=== PATIENT | female | born 1950 | race Caucasian/White ===

== ENCOUNTER → 2023-10-15 11:26 | Outpatient (REF) | payer OTHER, SELFPAY ==
[2023-10-15 12:11] LABS: % Basophils 0.8 % (0-2); % Eosinophils 1.8 % (0-6); % Immature Granulocytes 0.2 % (0-0.5); % Lymphocytes 29.6 % (20.5-51.1); % Monocytes 12.7 % (1.7-9.3); % Neutrophils 54.9 % (42.2-75.2); Absolute Eosinophils 0.1 10^3/uL (0-0.7); Absolute Lymphocytes 1.5 10^3/uL (1.2-3.4); Absolute Monocytes 0.7 10^3/uL (0.1-0.6); Absolute Neutrophils 2.8 10^3/uL (1.4-6.5); Hematocrit 39.1 % (37.0-47.0); Hemoglobin 12.9 g/dL (12.0-16.0); Mean Corpuscular Hgb 30.4 pg (27.0-31.0); Mean Corpuscular Volume 92.2 fL (81.0-99.0); Mean Platelet Volume 10.6 fL (7.4-10.4); Nucleated Red Blood Cells % 0 %; Platelet Count 259 10^3/uL (130-400); Red Blood Cell Count 4.24 10^6/uL (4.20-5.40); Red Cell Dist. Width 12.6 % (11.5-14.5); White Blood Cell Count 5.1 10^3/uL (4.8-10.8)
[2023-10-15 12:25] LABS: INR 2.21; PT 24.7 Sec (11.4-14.6)
== END ==
LOC: REG 11:26
PROVIDERS: ATTENDING PHYSICIAN Internal Medicine Hematology & Oncology; FAMILY PHYSICIAN Internal Medicine
DX: Z86.718 Personal history of other venous thrombosis and embolism (principal); Z86.73 Personal history of transient ischemic attack (TIA), and cerebral infarction without residual deficits; D75.9 Disease of blood and blood-forming organs, unspecified; D69.9 Hemorrhagic condition, unspecified; M35.01 Sjogren syndrome with keratoconjunctivitis; R23.3 Spontaneous ecchymoses; D68.61 Antiphospholipid syndrome
CPT/HCPCS: 36415; 85025; 85610

== ENCOUNTER → 2023-10-27 15:22 | Outpatient (REF) | payer OTHER, SELFPAY ==
[2023-10-27 16:36] LABS: % Basophils 1.1 % (0-2); % Eosinophils 1.7 % (0-6); % Immature Granulocytes 0.4 % (0-0.5); % Lymphocytes 32.3 % (20.5-51.1); % Monocytes 10.8 % (1.7-9.3); % Neutrophils 53.7 % (42.2-75.2); Absolute Basophils 0.1 10^3/uL (0-0.2); Absolute Eosinophils 0.1 10^3/uL (0-0.7); Absolute Lymphocytes 1.8 10^3/uL (1.2-3.4); Absolute Monocytes 0.6 10^3/uL (0.1-0.6); Absolute Neutrophils 2.9 10^3/uL (1.4-6.5); Hematocrit 36.9 % (37.0-47.0); Hemoglobin 12.3 g/dL (12.0-16.0); Mean Corp Hgb Conc. 33.3 g/dL (33.0-37.0); Mean Platelet Volume 10.9 fL (7.4-10.4); Nucleated Red Blood Cells % 0 %; Platelet Count 292 10^3/uL (130-400); Red Cell Dist. Width 12.7 % (11.5-14.5); White Blood Cell Count 5.5 10^3/uL (4.8-10.8)
[2023-10-27 16:44] LABS: INR 3.05; PT 31.5 Sec (11.4-14.6)
== END ==
LOC: REG 15:22
PROVIDERS: ATTENDING PHYSICIAN Internal Medicine Hematology & Oncology; FAMILY PHYSICIAN Internal Medicine
DX: Z86.718 Personal history of other venous thrombosis and embolism (principal); Z86.73 Personal history of transient ischemic attack (TIA), and cerebral infarction without residual deficits; D75.9 Disease of blood and blood-forming organs, unspecified; D69.9 Hemorrhagic condition, unspecified; M35.01 Sjogren syndrome with keratoconjunctivitis; R23.3 Spontaneous ecchymoses; D68.61 Antiphospholipid syndrome
CPT/HCPCS: 36415; 85025; 85610

== ENCOUNTER → 2023-11-06 15:46 | Outpatient (REF) | payer OTHER, SELFPAY | LOC: REG 15:46 | PROVIDERS: ATTENDING PHYSICIAN Internal Medicine Hematology & Oncology; FAMILY PHYSICIAN Internal Medicine | DX: Z86.718 Personal history of other venous thrombosis and embolism (principal); Z86.73 Personal history of transient ischemic attack (TIA), and cerebral infarction without residual deficits; D75.9 Disease of blood and blood-forming organs, unspecified; D69.9 Hemorrhagic condition, unspecified; M35.01 Sjogren syndrome with keratoconjunctivitis; R23.3 Spontaneous ecchymoses; D68.61 Antiphospholipid syndrome | CPT/HCPCS: 36415; 85610 ==

== ENCOUNTER → 2023-12-11 10:29 | Outpatient (REF) | payer OTHER, SELFPAY ==
[2023-12-11 11:06] LABS: INR 1.99; PT 22.5 Sec (11.4-14.6)
== END ==
LOC: REG 10:29
PROVIDERS: ATTENDING PHYSICIAN Internal Medicine Hematology & Oncology; FAMILY PHYSICIAN Internal Medicine
DX: Z86.718 Personal history of other venous thrombosis and embolism (principal); Z86.73 Personal history of transient ischemic attack (TIA), and cerebral infarction without residual deficits; D75.9 Disease of blood and blood-forming organs, unspecified; D69.9 Hemorrhagic condition, unspecified
CPT/HCPCS: 36415; 85610

== ENCOUNTER → 2023-12-17 09:35 | Outpatient (REF) | payer OTHER, SELFPAY ==
[2023-12-17 12:13] LABS: INR 2.56; PT 27.8 Sec (11.4-14.6)
== END ==
LOC: REG 09:35
PROVIDERS: ATTENDING PHYSICIAN Internal Medicine Hematology & Oncology; FAMILY PHYSICIAN Internal Medicine
DX: Z86.718 Personal history of other venous thrombosis and embolism (principal); Z86.73 Personal history of transient ischemic attack (TIA), and cerebral infarction without residual deficits; D75.9 Disease of blood and blood-forming organs, unspecified; D69.9 Hemorrhagic condition, unspecified; M35.01 Sjogren syndrome with keratoconjunctivitis; R23.3 Spontaneous ecchymoses; D68.61 Antiphospholipid syndrome
CPT/HCPCS: 36415; 85610

== ENCOUNTER → 2024-01-13 15:20 | Outpatient (REF) | payer OTHER, SELFPAY ==
[2024-01-13 17:12] LABS: INR 2.42; PT 26.6 Sec (11.4-14.6)
== END ==
LOC: REG 15:20
PROVIDERS: ATTENDING PHYSICIAN Internal Medicine Hematology & Oncology; FAMILY PHYSICIAN Internal Medicine
DX: Z86.718 Personal history of other venous thrombosis and embolism (principal); Z86.73 Personal history of transient ischemic attack (TIA), and cerebral infarction without residual deficits; D75.9 Disease of blood and blood-forming organs, unspecified; D69.9 Hemorrhagic condition, unspecified; M35.01 Sjogren syndrome with keratoconjunctivitis; R23.3 Spontaneous ecchymoses; D68.61 Antiphospholipid syndrome
CPT/HCPCS: 36415; 85610

== ENCOUNTER 2024-01-28 10:03 | Emergency (ER) | payer OTHER, SELFPAY ==
[2024-01-28 10:13] VITALS: BP 148/83
--- NOTE | 2024-01-28 12:11 | ED.GENMED ---
History of Present Illness
General
Chief Complaint: Musculo-Skeletal Complaint
Source: patient
Exam Limitations: none
Time Seen by Provider: 01/28/24 11:30
Nursing documentation reviewed up to this point in time: agreed with
Travel History
Have you had any contact with someone who has COVID-19?: No
Do you have any symptoms of coronavirus? Fever > 100 degrees, chills, cough, shortness of breath, sore throat, loss of taste or smell, muscle aches, or headache?: No
History of Present Illness
History of Present Illness:
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 She reports earlier today around 7 AM she was outside gardening lifting heavy hoses but did not necessarily
have an injury. She reports prior to arrival she was sitting having coffee and she felt pain in her left upper trapezius, shoulder area which radiated down her left arm and into her left fifth finger. Her was helping her get dressed when
she felt a lot of pain in her upper arm and noticed a lump to her left upper inner arm. She denies any injury. She does report however in the past she has had episodes where she has had bruising without injury. She had no associated chest pain or
shortness of breath. She has pain with left arm abduction. No cardiac history.
Patient does report that she has had multiple episodes in the past of ecchymosis to extremities being on Coumadin and had no exact injury.
Past History
Past History
ED Past Medical History: CVA, HTN, Hypothyroidism and Other (lupus/Sjogren's, DVT, Pyelo, pericardial effusion)
ED Past Surgical History: Orthopedic and Other (Pericardiocentesis)
Social History
Tobacco: Former smoker
Alcohol: None
Drug: None
Personal:
Living: with family
Review of Systems
Review of Systems
Allergies reviewed?: Yes
All Other Systems: ROS reviewed and negative except as documented in HPI and ROS
Constitutional: Reports no symptoms; Denies fever
Respiratory: Reports no symptoms; Denies trouble breathing
Cardiac: Reports no symptoms; Denies chest pain
Musculoskeletal: Reports other (left arm pain )
Skin: Reports no symptoms
Neurological: Reports no symptoms
Psychiatric: Reports no symptoms
Phy Exam
General Physical Exam
General Presentation: no apparent distress
General age: appears stated age
General Skin: warm and dry
General Hydration: appears well hydrated
Cardiovascular Exam
Cardiovascular Exam: regular rate/rhythm, no murmur and normal peripheral pulses
Pulmonary Exam
Pulmonary Exam: lungs clear and no respiratory distress
[place] Coma Scale
Eye Opening: Spontaneous
Verbal Response: Oriented
Motor Response: Obeys Commands
GCS Total Score: 15
Musculoskeletal Exam
Musculoskeletal Exam: full ROM
Skin Exam
Skin Exam: normal color and warm/dry
Psychiatric Exam
Psychiatric Exam: normal mood/affect
Course
Orders/Labs/Results
Orders:
Orders
01/28/24 10:06
EKG [Electrocardiogram (*1)] Urgent
Reason for Study: Chest Pain
01/28/24 10:07
EKG- Treatment ONCE
01/28/24 12:12
Non Vasc Upper Ext Left US [US Non Vasc UPPER Ext LT] Urgent
Comment:
Reason For Exam: lump to upper inner arm
01/28/24 12:56
Complete Blood Count/With Diff Urgent
Comprehensive Metabolic Panel Urgent
Prothrombin Time Urgent
01/28/24 14:35
Sling Left-Treatment ONCE
Acetaminophen [Tylenol] 650 mg PO NOW STA
Abnormal Lab Results
01/28/24
12:56
RBC 4.07 L 10^6/uL
(4.20-5.40)
Hct 36.2 L %
(37.0-47.0)
MPV 10.5 H fL
(7.4-10.4)
Absolute Monos (auto) 0.7 H 10^3/uL
(0.1-0.6)
Monocytes % 11.8 H %
(1.7-9.3)
PT 26.8 H Sec
(11.4-14.6)
BUN 18 H mg/dl
(7-17)
01/28/24 12:56
01/28/24 12:56
Vital Signs
Initial and Last Documented VS:
Initial Vital Signs
Temp Pulse Resp BP Pulse Ox
98.7 F 76 16 148/83 98
01/28/24 10:13 01/28/24 10:13 01/28/24 10:13 01/28/24 10:13 01/28/24 10:13
Last Documented Vital Signs
Temp Pulse Resp BP Pulse Ox
98.7 F 76 16 148/83 99
01/28/24 10:13 01/28/24 10:13 01/28/24 10:13 01/28/24 10:13 01/28/24 11:09
Physics Tutor consulted with Physician
Physics Tutor consulted with physician?: Yes
Name of Physician Consulted: No
MDM/Problems Addressed
Differential Diagnosis Includes:
not limited
MDM/Problems Addressed:
Patient is a 73-year-old female who presented to the ER with left shoulder/upper arm pain that radiates down her left arm and into her fifth finger while sitting having breakfast. She had no injury but noticed a palpable lump to the upper inner arm
which was very tender. She denies any injury. She is on Coumadin and does a lot of work around the house. Today she was moving hoses and noticed pain after. On exam she arrives in no acute distress she had no associated chest pain shortness of
breath normal EKG no cardiac history. 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 Pt has no bony tenderness. will hold
of of xray.
Patient is afebrile stable hemoglobin at 12.1 INR is 2.44 normal chemistries , ultrasound does show a complex collection at the level of interest 4.2 cm likely a hematoma. Patient no acute distress had discomfort with ambulation symptoms are
consistent with muscle/hematoma. Will DC with sling for support ice Tylenol and outpatient Ortho follow-up
*Radiology
Radiology exam reviewed: radiology read reviewed
*Pulse Oximetry
Patient hypoxic: no
*EKG
Interpreted by ED Provider?: Yes
Heart Rate: 70
Rate: normal
Rhythm: sinus
Ischemia: no ischemia
*Critical Care Note
Total Time (30-74mins, 75-104mins- exclusive of procedures): Not Applicable
ED Attending Note
-
Portions of this chart may have been created with voice recognition software.� Occasional wrong word or��sound alike� substitutions may have occurred due to the inherent limitations of voice recognition software.
Discharge Plan
Departure
Patient Disposition: Home (Routine Discharge)
Date of Disposition: 01/28/24
Time of Disposition: 14:39
Patient with high blood pressure during this ER visit?: Yes
Covid-19: Not Applicable
Discharge Problem:
Hematoma
Instructions: Hematoma
Prescriptions:
No Action
hydroxychloroquine 200 MG tablet
300 mg PO DAILY
zinc acetate 50 mg (zinc) Capsule
50 mg PO DAILY
warfarin 5 mg tablet
10 mg PO MOFR
warfarin 5 mg tablet
7.5 mg PO SUTUWETHSA
TheraTears 0.25 % Dropperette
1 drp BOTH EYES DAILY
cholecalciferol (vitamin D3) [Vitamin D3] 25 mcg (1,000 unit) Tablet
25 mcg PO DAILY
TheraTears Nutrition [phone] nk-oc-dh-unit Capsule
1 cap PO DAILY
doxycycline hyclate 100 mg Capsule
100 mg PO BID Qty: 12 0RF
cefdinir 300 mg capsule
300 mg PO Q12H Qty: 12 0RF
Referrals:
Yas Martinez MD [Family Provider] -
Familia Louis MD [Active] -
Activity Restrictions/Additional Instructions:
As discussed wear sling for support but remove several times a day and do gentle range of motion exercises. Ice the affected area for the next 24 hours times of time several times a day. Tylenol for discomfort. Follow-up with orthopedics for
further reevaluation return if any worsening of symptoms
Interventions
Interventions:
*Risk Screen - Suicide Last Done: 01/28/24 11:09
*General Assessment Last Done: 01/28/24 11:09
*Neglect/Abuse Screening Last Done: 01/28/24 11:09
ED- Fall Risk Assessment Last Done: 01/28/24 11:09
*ED COVID-19 Vaccine History Last Done: 01/28/24 10:13
ED-Musculoskeletal Assessment Last Done: 01/28/24 11:09
Discharge Date and Time
Print Language: YI
[2024-01-28 13:29] LABS: % Basophils 0.5 % (0-2); % Eosinophils 2.2 % (0-6); % Immature Granulocytes 0.2 % (0-0.5); % Lymphocytes 24.1 % (20.5-51.1); % Monocytes 11.8 % (1.7-9.3); % Neutrophils 61.2 % (42.2-75.2); Absolute Eosinophils 0.1 10^3/uL (0-0.7); Absolute Lymphocytes 1.5 10^3/uL (1.2-3.4); Absolute Monocytes 0.7 10^3/uL (0.1-0.6); Absolute Neutrophils 3.8 10^3/uL (1.4-6.5); Hematocrit 36.2 % (37.0-47.0); Hemoglobin 12.1 g/dL (12.0-16.0); Mean Corp Hgb Conc. 33.4 g/dL (33.0-37.0); Mean Corpuscular Hgb 29.7 pg (27.0-31.0); Mean Corpuscular Volume 88.9 fL (81.0-99.0); Mean Platelet Volume 10.5 fL (7.4-10.4); Nucleated Red Blood Cells % 0 %; Platelet Count 242 10^3/uL (130-400); Red Blood Cell Count 4.07 10^6/uL (4.20-5.40); Red Cell Dist. Width 13.2 % (11.5-14.5); White Blood Cell Count 6.3 10^3/uL (4.8-10.8)
[2024-01-28 13:39] LABS: INR 2.44; PT 26.8 Sec (11.4-14.6)
[2024-01-28 13:43] LABS: ALT (SGPT) 17 U/L (0-35); AST (SGOT) 26 U/L (14-36); Albumin 4.4 g/dl (3.5-5.0); Alkaline Phosphatase 76 U/L (38-126); Blood Urea Nitrogen 18 mg/dl (7-17); Calcium 9.9 mg/dl (8.4-10.2); Carbon Dioxide 28 mmol/L (22-30); Chloride 105 mmol/L (98-107); Glucose 87 mg/dl (70-99); Potassium 4.7 mmol/L (3.5-5.1); Sodium 142 mmol/L (135-145); Total Bilirubin 0.7 mg/dl (0.2-1.3); Total Protein 7.6 g/dl (6.3-8.2); eGFR 59.86
[2024-01-28] MEDS: TYLENOL 650 MG PO (14:39)
[2024-01-28 14:46] VITALS: BP 142/87
== END 2024-01-28 15:16 | disposition home or self-care (01) ==
LOC: EMR 10:03
PROVIDERS: Nurse Practitioner; EMERGENCY PHYSICIAN Emergency Medicine; FAMILY PHYSICIAN Internal Medicine
DX: S40.022A Contusion of left upper arm, initial encounter (principal); X58.XXXA Exposure to other specified factors, initial encounter; Y93.H2 Activity, gardening and landscaping; Y92.007 Garden or yard of unspecified non-institutional (private) residence as the place of occurrence of the external cause; I10 Essential (primary) hypertension; E03.9 Hypothyroidism, unspecified; M32.9 Systemic lupus erythematosus, unspecified; K57.90 Diverticulosis of intestine, part unspecified, without perforation or abscess without bleeding; M19.90 Unspecified osteoarthritis, unspecified site; M48.00 Spinal stenosis, site unspecified; D64.9 Anemia, unspecified; M35.00 Sjogren syndrome, unspecified; Z96.641 Presence of right artificial hip joint; Z96.651 Presence of right artificial knee joint; Z86.73 Personal history of transient ischemic attack (TIA), and cerebral infarction without residual deficits; Z87.891 Personal history of nicotine dependence; Z86.718 Personal history of other venous thrombosis and embolism; Z79.01 Long term (current) use of anticoagulants
CPT/HCPCS: 99284; 76882; 80053; 85025; 85610; 93005

== ENCOUNTER → 2024-03-04 14:11 | Outpatient (REF) | payer OTHER, SELFPAY ==
[2024-03-04 14:48] LABS: INR 2.99
== END ==
LOC: REG 14:11
PROVIDERS: ATTENDING PHYSICIAN Internal Medicine Hematology & Oncology; FAMILY PHYSICIAN Family Medicine
DX: Z86.718 Personal history of other venous thrombosis and embolism (principal); Z86.73 Personal history of transient ischemic attack (TIA), and cerebral infarction without residual deficits; D75.9 Disease of blood and blood-forming organs, unspecified; D69.9 Hemorrhagic condition, unspecified; M35.01 Sjogren syndrome with keratoconjunctivitis; R23.3 Spontaneous ecchymoses; D68.61 Antiphospholipid syndrome
CPT/HCPCS: 36415; 85610

== ENCOUNTER → 2024-06-29 13:00 | Outpatient (REF) | payer OTHER, SELFPAY | LOC: WDC 13:00 | PROVIDERS: ATTENDING PHYSICIAN Family Medicine | DX: Z78.0 Asymptomatic menopausal state (principal); Z12.31 Encounter for screening mammogram for malignant neoplasm of breast | CPT/HCPCS: 77063; 77067; 77080 ==

== ENCOUNTER 2024-07-05 06:36 | Outpatient (RCR) | payer OTHER, SELFPAY | END 2024-07-05 23:59 | disposition home or self-care (01) | LOC: RPT 06:36 | PROVIDERS: ATTENDING PHYSICIAN Family Medicine | DX: M54.16 Radiculopathy, lumbar region (principal); R53.1 Weakness; Z73.6 Limitation of activities due to disability | CPT/HCPCS: 97110; 97162 ==

== ENCOUNTER 2024-07-27 10:01 | Outpatient (RCR) | payer OTHER, SELFPAY | END 2024-07-27 23:59 | disposition home or self-care (01) | LOC: RPT 10:01 | PROVIDERS: ATTENDING PHYSICIAN Family Medicine | DX: M54.16 Radiculopathy, lumbar region (principal); R53.1 Weakness; Z73.6 Limitation of activities due to disability | CPT/HCPCS: 97110 ==

== ENCOUNTER → 2024-08-10 09:12 | Outpatient (REF) | payer OTHER, SELFPAY ==
[2024-08-10 10:45] LABS: Urine Albumin Negative (Neg - Trace); Urine Bilirubin Negative (Negative); Urine Character Clear (Clear); Urine Color Yellow; Urine Glucose Negative (Negative); Urine Ketone Negative (Negative); Urine Leukocyte 1+ (Negative); Urine Nitrite Negative (Negative); Urine Occult Blood Negative (Negative); Urine Urobilinogen Negative (Neg - 1+); Urine pH 6.5 (5.0-9.0)
[2024-08-10 11:04] LABS: % Basophils 0.8 % (0-2); % Eosinophils 2.8 % (0-6); % Immature Granulocytes 0.3 % (0-0.5); % Lymphocytes 19.9 % (20.5-51.1); % Neutrophils 65.2 % (42.2-75.2); Absolute Basophils 0.1 10^3/uL (0-0.2); Absolute Eosinophils 0.2 10^3/uL (0-0.7); Absolute Lymphocytes 1.2 10^3/uL (1.2-3.4); Absolute Monocytes 0.7 10^3/uL (0.1-0.6); Hematocrit 37.1 % (37.0-47.0); Hemoglobin 12.1 g/dL (12.0-16.0); Mean Corp Hgb Conc. 32.6 g/dL (33.0-37.0); Mean Corpuscular Hgb 30.1 pg (27.0-31.0); Mean Corpuscular Volume 92.3 fL (81.0-99.0); Mean Platelet Volume 10.8 fL (7.4-10.4); Nucleated Red Blood Cells % 0 %; Platelet Count 380 10^3/uL (130-400); Red Blood Cell Count 4.02 10^6/uL (4.20-5.40); Red Cell Dist. Width 12.9 % (11.5-14.5); White Blood Cell Count 6.2 10^3/uL (4.8-10.8)
[2024-08-10 11:24] LABS: Urine Amorphous Seen; Urine Mucus Few; Urine Squamous Cell 16-20 /LPF (Few)
[2024-08-10 11:26] LABS: Urine Red Blood Cell 0-2 /HPF (0-2)
[2024-08-10 11:31] LABS: Erythrocyte Sed Rate 58 mm/hour (0-20)
[2024-08-10 11:38] LABS: ALT (SGPT) 86 U/L (0-35); AST (SGOT) 39 U/L (14-36); Albumin 4.3 g/dl (3.5-5.0); Alkaline Phosphatase 104 U/L (38-126); Blood Urea Nitrogen 20 mg/dl (7-17); Calcium 9.5 mg/dl (8.4-10.2); Carbon Dioxide 28 mmol/L (22-30); Chloride 103 mmol/L (98-107); Glucose 86 mg/dl (70-99); HDL Cholesterol 90 mg/dl; LDL Cholesterol, Calculated 132 mg/dl; Potassium 4.3 mmol/L (3.5-5.1); Sodium 144 mmol/L (135-145); Total Bilirubin 0.4 mg/dl (0.2-1.3); Total Cholesterol 243 mg/dl (50-199); Total Protein 7.7 g/dl (6.3-8.2); Triglyceride 109 mg/dl (10-149); Very Low Density Lipoprotein 21 mg/dl (0-30); eGFR 48.09
[2024-08-10 11:43] LABS: Protein/creatinine Ratio 0.1; Urine Protein 8 mg/dl
[2024-08-11 00:18] LABS: Complement C3 111 mg/dl (88-165)
[2024-08-12 00:46] LABS: ds-DNA Ab, IgG Reflex To Titer 6 IU (0-24)
[2024-08-12 03:25] LABS: EBV-EA (D) Ab IgG 6.7 U/mL (0.0-10.9); EBV-VCA IgM Antibodies 22.3 U/mL (0.0-43.9)
[2024-08-12 04:00] LABS: CMV Qnt NAAT Plasma Log IU/mL Not Detected log IU/mL; CMV Quant NAAT Plasma Interp Not Detected (Not Detected); CMV Quant by NAAT Plasma IU/mL Not Detected
== END ==
LOC: REG 09:12
PROVIDERS: ATTENDING PHYSICIAN Internal Medicine Rheumatology; FAMILY PHYSICIAN Family Medicine; REFERRING PHYSICIAN Nurse Practitioner Family
DX: E78.00 Pure hypercholesterolemia, unspecified (principal); E55.9 Vitamin D deficiency, unspecified; M32.9 Systemic lupus erythematosus, unspecified; M35.9 Systemic involvement of connective tissue, unspecified; M81.0 Age-related osteoporosis without current pathological fracture; R80.9 Proteinuria, unspecified; Z51.81 Encounter for therapeutic drug level monitoring; R07.81 Pleurodynia; M25.511 Pain in right shoulder; M25.512 Pain in left shoulder; R59.1 Generalized enlarged lymph nodes
CPT/HCPCS: 36415; 71046; 80053; 80061; 81003; 81015; 82306; 82570; 84156; 85025; 85652; 86140; 86160; 86225; 86618; 86663; 86664; 86665; 87086; 87497

== ENCOUNTER 2025-05-02 07:34 | Outpatient (RCR) | payer OTHER, SELFPAY | END 2025-05-02 23:59 | disposition home or self-care (01) | LOC: RPT 07:34 | PROVIDERS: ATTENDING PHYSICIAN Family Medicine | DX: M54.16 Radiculopathy, lumbar region (principal); Z73.6 Limitation of activities due to disability; M62.81 Muscle weakness (generalized); G89.29 Other chronic pain | CPT/HCPCS: 97110; 97162; 97530 ==

== ENCOUNTER → 2025-05-02 10:55 | Outpatient (REF) | payer OTHER, SELFPAY ==
[2025-05-02 11:46] LABS: Hematocrit 39.1 % (37.0-47.0); Hemoglobin 12.8 g/dL (12.0-16.0); Mean Corp Hgb Conc. 32.7 g/dL (33.0-37.0); Mean Corpuscular Volume 90.9 fL (81.0-99.0); Nucleated Red Blood Cells % 0 %; Platelet Count 271 10^3/uL (130-400); Red Cell Dist. Width 13.4 % (11.5-14.5)
[2025-05-02 12:27] LABS: ALT (SGPT) 31 U/L (0-35); AST (SGOT) 27 U/L (14-36); Albumin 4.6 g/dl (3.5-5.0); Alkaline Phosphatase 71 U/L (38-126); Blood Urea Nitrogen 23 mg/dl (7-17); Calcium 10.1 mg/dl (8.4-10.2); Carbon Dioxide 28 mmol/L (22-30); Chloride 106 mmol/L (98-107); Glucose 81 mg/dl (70-99); Potassium 5.0 mmol/L (3.5-5.1); Sodium 140 mmol/L (135-145); Total Protein 7.9 g/dl (6.3-8.2); eGFR 59.49
[2025-05-04 21:09] LABS: 24 Hour Urine Total Volume Random mL; Urine Collection Length Random hr
== END ==
LOC: REG 10:55
PROVIDERS: ATTENDING PHYSICIAN Internal Medicine Rheumatology; FAMILY PHYSICIAN Family Medicine
DX: D68.61 Antiphospholipid syndrome (principal); D89.2 Hypergammaglobulinemia, unspecified; E55.9 Vitamin D deficiency, unspecified; M32.9 Systemic lupus erythematosus, unspecified; M35.00 Sjogren syndrome, unspecified; M85.80 Other specified disorders of bone density and structure, unspecified site; R51.9 Headache, unspecified; R80.9 Proteinuria, unspecified; Z79.899 Other long term (current) drug therapy; I10 Essential (primary) hypertension; E78.00 Pure hypercholesterolemia, unspecified; R74.8 Abnormal levels of other serum enzymes; R63.6 Underweight
CPT/HCPCS: 36415; 80053; 82570; 82784; 83520; 83521; 84155; 84156; 84165; 84443; 85025; 86334; 86335

== ENCOUNTER 2025-06-06 12:00 | Outpatient (RCR) | payer OTHER, SELFPAY | END 2025-06-06 23:59 | disposition home or self-care (01) | LOC: RPT 12:00 | PROVIDERS: ATTENDING PHYSICIAN Family Medicine | DX: M54.16 Radiculopathy, lumbar region (principal); Z73.6 Limitation of activities due to disability; M62.81 Muscle weakness (generalized); G89.29 Other chronic pain; M79.605 Pain in left leg | CPT/HCPCS: 97110 ==

== ENCOUNTER 2025-07-05 11:39 | Outpatient (RCR) | payer OTHER, SELFPAY | END 2025-07-05 23:59 | disposition home or self-care (01) | LOC: RPT 11:39 | PROVIDERS: ATTENDING PHYSICIAN Family Medicine | DX: M54.16 Radiculopathy, lumbar region (principal); Z73.6 Limitation of activities due to disability; M62.81 Muscle weakness (generalized); M79.605 Pain in left leg; G89.29 Other chronic pain | CPT/HCPCS: 97110; 97112 ==

== ENCOUNTER 2025-07-27 08:32 | Outpatient (RCR) | payer OTHER, SELFPAY | END 2025-07-27 23:59 | disposition home or self-care (01) | LOC: RPT 08:32 | PROVIDERS: ATTENDING PHYSICIAN Family Medicine | DX: M54.16 Radiculopathy, lumbar region (principal); Z73.6 Limitation of activities due to disability; M62.81 Muscle weakness (generalized); M79.605 Pain in left leg; G89.29 Other chronic pain | CPT/HCPCS: 97110; 97112 ==